=== PATIENT | male | born 1990 | race Caucasian/White ===

== ENCOUNTER 2019-10-19 08:20 | Emergency (ER) | payer BC ==
--- OUTSIDE RECORDS SUMMARY | 2019-10-19 08:30 | XMS REPORT | Continuity of Care Document ---
:1990 External Reference #:[id number] Author Name Ron Felipe M.D. Address [address] [place] [id number] Problems Active Problems Provider Date Allergy to other foods Ron Felipe M.D. 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 Cats Allergic asthma 10/17/2019 Dogs Allergic asthma 10/17/2019 Nuts depends on nut type 10/17/2019 Medications Description No Active Medications Immunizations CPT Code Status Date Vaccine Lot # [id number] Given Unknown Influenza Virus Vaccine, Quadrivalent, Split, Preservative Free Vital Signs Date Vital Result Comment 10/17/2019 2:11pm Height 69 inches 5'9" Weight 185.00 lb Weight 83.916 kg Respiratory Rate 18 /min Heart Rate 77 /min O2 % BldC Oximetry 96 % BP Systolic 127 mmHg BP Diastolic 90 mmHg BMI (Body Mass Index) 27.3 kg/m2 Results Description No Information Available Procedures Date Code Description Status 10/17/2019 45441 Skin Test Scratch # Of Units ____ Completed Medical Devices Description No Information Available Encounters Description No Information Available Assessments Date Code Description Provider 10/17/2019 Z91.018 Allergy to other foods Ron Felipe M.D. Plan of Treatment Future Appointment(s):11/14/2019 11:00 am - Ron Felipe M.D. at [id number] - Ron Felipe M.D.Z91.018 Allergy to other foodsNew Labs:Peanut component: Arah1,2,3,8,9, Ordered: 10/17/19Rast Peanut F13, Ordered: 10/17/19Rast [place] F20, Ordered: 10/17/19Rast [place] Nut F18, Ordered: 10/17/19Rast Cashew Nut F202 , Ordered: 10/17/19Rast Hazelnut F17, Ordered: 10/17/19Rast Pistachio Nut F203, Ordered: 10/17/19Rast [place] Food F256, Ordered: 10/17/19Rast Pecan Nut F201, Ordered: 10/17/19Rast Macadamia Nut RF345, Ordered: 10/17/19Follow up:4-6 weeks discussionRecommendations:skin testing for nuts serum IgE for nuts depending on the out come of the testing will decide about the avoidance or oral food challenge strict avoidance for Peanut use Epipen for any accidental exposure causing anaphylaxis skin testing positive for walnut and Hazle nut it was negative to other nuts like pecan,[place] cashew and [place] nut results discussed with him will consider doing the skin testing with macademia nut too strict avoidance of all the nuts at this pointAllNew Medication:No Active Medications - Functional Status Description No Information Available Mental Status Description No Information Available Referrals Description No Information Available
[2019-10-19 08:35] VITALS: BP 115/61
[2019-10-19] MEDS ORDERED: Tetan/Diph/Pertus SYR(Tdap)* 0.5 ML SYR(BOOSTRIX) use SYR contains LATEX IM ONE (08:58)
[2019-10-19] MEDS ORDERED: Lidocaine 1% MPF ** 5 ML VIAL INJ ONE (09:01)
--- NOTE | 2019-10-19 09:06 | UC ---
UC General HPI - HPI Summary HPI Summary: Patient was cutting potatoes last night around 22:00 and cut his left thumb at the tip. Still oozing this morning and painful. Unsure when his last tetanus was. Cleaned it out with soap and water Meds: reviewed - History of Current Complaint Chief Complaint: UCLaceration Stated Complaint: THUMB LACERATION Time Seen by Provider: 10/19/19 08:58 Pain Intensity: 2 - Allergy/Home Medications Allergies/Adverse Reactions: Allergies Allergy/AdvReac Type Severity Reaction Status Date / Time naproxen [From Aleve] Allergy Nausea Verified 10/19/19 08:29 nut - unspecified Allergy Anaphylatic Verified 10/19/19 08:29 Shock Penicillins Allergy Hives Verified 10/19/19 08:29 Home Medications: Home Medications NK [No Home Medications Reported] 10/19/19 [History Confirmed 10/19/19] PMH/Surg Hx/FS Hx/Imm Hx Previously Healthy: Yes - Surgical History Surgical History: None - Social History Alcohol Use: Weekly Substance Use Type: None Smoking Status (MU): Never Smoked Tobacco Review of Systems All Other Systems Reviewed And Are Negative: Yes Physical Exam Triage Information Reviewed: Yes Appearance: Well-Appearing Vital Signs: Initial Vital Signs Temp 98.1 F 10/19/19 08:30 Pulse 72 10/19/19 08:30 Resp 18 10/19/19 08:30 BP 115/61 10/19/19 08:30 Pulse Ox 98 10/19/19 08:30 Vital Signs Reviewed: Yes Skin: Positive: Other - curved 2 inch laceration at tip of left thumb, blood remains to be oozing Course/Dx - Course Course Of Treatment: This is a 29 year old with left thumb laceration Tetanus booster given Area cleaned with soap and water Time out was done Iodine was used to clean area, sterile procedure Lidocaine was injected 3 sutures 4-0 prolene were placed at proximal thumb with good skin approximation NO complications Plan Recommend return to urgent care to sutures removed in 8-14 days Keep area clean and dry and covered Wash area with soap and water If any redness, swelling, increase in pain or red streaking return to urgent care for further evaluation - Diagnoses Provider Diagnosis: Laceration Discharge ED - Sign-Out/Discharge Documenting (check all that apply): Patient Departure All imaging exams completed and their final reports reviewed: No Studies - Discharge Plan Condition: Fair Disposition: HOME Patient Education Materials: Finger Laceration (ED) Referrals: No Primary Care Phys,NOPCP [Primary Care Provider] - Wes Wood MD [Medical Doctor] - Additional Instructions: Recommend return to urgent care to sutures removed in 8-14 days Keep area clean and dry and covered Wash area with soap and water If any redness, swelling, increase in pain or red streaking return to urgent care for further evaluation - Billing Disposition and Condition Condition: FAIR Disposition: Home
== END 2019-10-19 09:52 | disposition home or self-care (01) ==
LOC: MERGE 08:20 → UCEAST 08:20
DX: S61.012A Laceration without foreign body of left thumb without damage to nail, initial encounter (principal); Z23 Encounter for immunization; Z88.0 Allergy status to penicillin; Z88.6 Allergy status to analgesic agent; Z91.018 Allergy to other foods; W26.9XXA Contact with unspecified sharp object(s), initial encounter; Y92.9 Unspecified place or not applicable
CPT/HCPCS: 12001; 90715; 99201; G0463